=== PATIENT | male | born 1945 | race Caucasian/White ===

== ENCOUNTER → 2021-10-18 | Day surgery (SDC) | payer MEDICARE ==
[~2021-10-18] VITALS: Ht 170 cm; Wt 68.0 kg
[~2021-10-18] MED LIST: AMLODIPINE BESY10 MG PO; APRESOLINE100 MG PO; BACLOFEN10 MG PO; FUROSEMIDE 20MG20 MG PO; LABETALOL HCL200 MG PO; NEURONTIN300 MG PO; PENTOXIFYLLINE400 M1 PO; PRAVASTATIN SOD40 MG PO; VAZALORE81 MG PO; VITAMIN B COMP1 EAC1 PO; VITAMIN B-121000 MC1 PO; VITAMIN D3125 MC2 PO
[2021-10-18 09:32] LABS: BUN/CREAT RATIO (CALC) 16.6 RATIO; CREATININE 1.45 mg/dL (0.67-1.17); POTASSIUM 3.7 mmol/L (3.5-5.1)
== END | disposition home or self-care (01) ==
LOC: FAS 08:17
PROVIDERS: Anesthesiology
DX: Z12.11 Encounter for screening for malignant neoplasm of colon (principal); K63.5 Polyp of colon; K59.09 Other constipation; K57.30 Diverticulosis of large intestine without perforation or abscess without bleeding; I12.9 Hypertensive chronic kidney disease with stage 1 through stage 4 chronic kidney disease, or unspecified chronic kidney disease; N18.30 Chronic kidney disease, stage 3 unspecified; Z86.010 Personal history of colon polyps; Z80.0 Family history of malignant neoplasm of digestive organs; Z79.82 Long term (current) use of aspirin; Z87.891 Personal history of nicotine dependence
CPT/HCPCS: 36415; 80048; J2704; J7120